=== PATIENT | female | born 1945 | race Caucasian/White ===

== ENCOUNTER → 2017-11-28 | Outpatient (CLI) | payer MEDICARE, OTHER ==
[~2017-11-28] MED LIST: ACHYD1T PO; AMLO10TA82 PO; ASP81TEC PO; BNZ20T PO; DCS100C PO; ESTR1TAB24 PO; IBP800T PO; MEDR10TA9 PO; OXYC-272 BC; SMV10T PO
--- NOTE | 2017-11-28 14:21 | Diagnostic Imaging Report ---
INDICATION: Screening. The current study was also evaluated with a Computer Aided Detection (CAD) system. Comparison made with prior examinations from 10/25/2016, 09/24/2015, and 09/22/2014. FINDINGS: There is a moderate amount of residual fibroglandular tissue bilaterally. There are a few benign-type calcifications. There is no dominant mass, spiculated lesion, or suspicious calcification identified. The skin, nipples, and axillae are unremarkable. IMPRESSION: Benign. ACR BI-RADS Category 2: Benign findings. Result letter will be mailed to the patient. Note: At least 10% of breast cancer is not imaged by mammography. Dictated by: Dictated on workstation # [id number]
== END ==
LOC: RAD 10:55
PROVIDERS: ATTEND Obstetrics & Gynecology
DX: Z12.31 Encounter for screening mammogram for malignant neoplasm of breast (principal)
CPT/HCPCS: 77067

== ENCOUNTER 2018-09-05 20:20 | Emergency (ER) | payer MEDICARE, OTHER ==
[~2018-09-05] VITALS: Ht 157.5 cm; Wt 54.4 kg
--- OUTSIDE RECORDS SUMMARY | 2018-09-05 20:25 | XMS REPORT | Continuity of Care Document ---
Author Author [facility] Organization [facility] Address Unknown Phone Unavailable Allergies Active Description Code Type Severity Reaction Onset Reported/Identified Relationship to Patient Clinical Status Yes naproxen sodium [id number] Drug Allergy Unknown N/A 09/19/2012 Medications There is no data. Problems Date Dx Coded Attending Type Code Diagnosis Diagnosed By 09/21/2012 Ot 218.2 09/21/2012 Ot 300.00 09/21/2012 Ot 620.8 09/21/2012 Ot 621.8 09/21/2012 Ot 625.8 09/21/2012 Ot 627.1 09/21/2012 Ot 788.20 09/21/2012 Ot V06.6 10/17/2014 ALEXIS WANG, MIGEL Lowe Ot V76.12 09/24/2015 Ot V76.12 09/24/2015 Ot V76.12 09/24/2015 Ot V76.12 09/24/2015 Ot 610.0 09/24/2015 Ot 285.9 09/24/2015 Ot 625.8 09/24/2015 Ot 627.1 09/24/2015 Ot V72.63 09/24/2015 Ot V74.8 09/24/2015 NATASHA ARELLANO MD Ot V76.12 09/24/2015 EILEEN WANG, NATASHA Stovall Ot 611.72 09/24/2015 MIGEL ESPINOZA MD Ot V76.12 09/28/2015 NATASHA ARELLANO MD Ot Z12.31 09/30/2015 NATASHA ARELLANO MD Ot Z12.31 10/19/2015 NATASHA ARELLANO MD Ot Z12.31 10/26/2016 NATASHA ARELLANO MD Ot Z12.31 ENCNTR SCREEN MAMMOGRAM FOR MALIGNANT NE 10/26/2016 NATASHA ARELLANO MD Ot Z12.31 ENCNTR SCREEN MAMMOGRAM FOR MALIGNANT NE 11/15/2016 NATASHA ARELLANO MD Ot Z12.31 ENCNTR SCREEN MAMMOGRAM FOR MALIGNANT NE 11/21/2017 NATASHA ARELLANO MD Ot Z12.31 ENCNTR SCREEN MAMMOGRAM FOR MALIGNANT NE 12/26/2017 NATASHA ARELLANO MD Ot Z12.31 ENCNTR SCREEN MAMMOGRAM FOR MALIGNANT NE Procedures There is no data. Results There is no data. Encounters ACCT No. Visit Date/Time Discharge Status Pt. Type Provider Facility Loc./Unit Complaint [id number] 11/28/2017 10:55:00 11/28/2017 23:59:59 CLS Outpatient NATASHA ARELLANO MD [facility] RAD ROUTINE SCREENING [id number] 10/25/2016 10:55:00 10/25/2016 23:59:59 CLS Outpatient NATASHA ARELLANO MD [facility] RAD ROUTINE [id number] 09/24/2015 09:54:00 09/24/2015 23:59:59 CLS Outpatient NATASHA ARELLANO MD [facility] RAD [id number] 09/22/2014 09:50:00 09/22/2014 23:59:59 CLS Outpatient MIGEL ESPINOZA MD [facility] RAD [id number] 06/27/2013 13:58:00 06/27/2013 23:59:59 CLS Outpatient NATASHA ARELLANO MD [facility] RAD [id number] 06/21/2013 12:03:00 06/21/2013 23:59:59 CLS Outpatient NATASHA ARELLANO MD [facility] RAD [id number] 09/05/2018 20:22:00 ACT Emergency SLIM SORTO MD [facility] ER COUGH [id number] 09/19/2012 05:36:00 Document Registration [id number] 09/13/2012 14:10:00 Document Registration [id number] 05/15/2012 12:37:00 Document Registration [id number] 05/02/2012 12:34:00 Document Registration [id number] 04/15/2011 11:47:00 Document Registration [id number] 07/15/2010 08:53:00 Document Registration
--- NOTE | 2018-09-05 20:34 | ED Cough/URI ---
General Stated Complaint: COUGH Source: patient Exam Limitations: no limitations History of Present Illness Date Seen by Provider: Sep 05, 2018 Time Seen by Provider: 20:33 Initial Comments To ER with a nonproductive cough of 2 weeks' duration and some voice hoarseness. She was seen at the onset of this at [facility] and diagnosed with bronchitis, given guaifenesin, pro-air inhaler, doxycycline. She finished all of these medications but the cough persists. No fevers or chills. She is otherwise healthy. She is a nonsmoker. She denies any wheezing. She did take a plane ride for vacation and feels that this has worsened her cough. She denies shortness of breath or fevers Timing/Duration: week (2 weeks) Severity/Quality: moderate Associated Symptoms: cough Allergies and Home Medications Allergies Coded Allergies: naproxen sodium (Verified Allergy, 09/19/12) Home Medications Acetaminophen with Codeine 1 Each Tablet, 1 EACH PO Q6H PRN for COUGH Prescribed by: LEWIS CUEVAS on 09/05/182122 Amlodipine Besylate 10 Mg Tablet, 1 EACH PO DAILY, (Reported) Aspirin 81 Mg Tabec, 81 MG PO DAILY, (Reported) Benazepril Hcl 20 Mg Tablet, 1 EACH PO DAILY, (Reported) Docusate Sodium 100 Mg Capsule, 100 MG PO BID, (Reported) Estradiol 1 Mg Tablet, 1 MG PO DAILY, (Reported) Ibuprofen 800 Mg Tab, 800 MG PO Q6HR, (Reported) Medroxyprogesterone Acetate 10 Mg Tablet, 25 MG PO DAILY, (Reported) Oxycodone Hcl/Acetaminophen 1 Tab Tablet, 1-2 TAB BC Q3 hrs PRN, (Reported) Simvastatin 10 Mg Tab, 10 MG PO DAILY, (Reported) Patient Home Medication List Home Medication List Reviewed: Yes Review of Systems Review of Systems Constitutional: see HPI; No chills, No fever EENTM: see HPI Respiratory: see HPI, cough Cardiovascular: no symptoms reported Genitourinary: no symptoms reported Musculoskeletal: no symptoms reported Skin: no symptoms reported Psychiatric/Neurological: No Symptoms Reported Past Zmftate-Ylisef-Hgxdmx Hx Patient Social History Recent Foreign Travel: No Contact w/Someone Who Travel: No Past Medical History Reproductive Disorders: No (RIGHT OVARIAN MASS,) Physical Exam Vital Signs - First Documented 09/05/18 20:36 Temp 97.6 Pulse 98 Resp 20 B/P (MAP) 144/79 (100) Pulse Ox 97 O2 Delivery Room Air Capillary Refill : Height: '" Weight: lbs. oz. kg; BMI Method: General Appearance: WD/WN, no apparent distress Eyes: Bilateral Eye Normal Inspection, Bilateral Eye PERRL, Bilateral Eye EOMI HEENT: PERRL/EOMI, normal ENT inspection, TMs normal Neck: non-tender, full range of motion Respiratory: normal breath sounds, no respiratory distress, no accessory muscle use Cardiovascular: regular rate, rhythm, no murmur Gastrointestinal: normal bowel sounds, non tender, soft Neurologic/Psychiatric: alert, normal mood/affect, oriented x 3 Skin: normal color, warm/dry, other (no unilateral leg swelling, no hypoxia or tachycardia, no shortness of breath.) Progress/Results/Core Measures Suspected Sepsis SIRS Temperature: Pulse: Respiratory Rate: Blood Pressure / Mean: Results/Orders My Orders Orders - LEWIS CUEVAS APRN Chest Pa/Lat (2 View) (09/05/18 20:32) Rx-Acetaminophen/Codeine (Rx-Tylenol #3) (09/05/18 21:30) Vital Signs/I&O 09/05/18 09/05/18 20:36 20:36 Temp 97.6 Pulse 98 Resp 20 B/P (MAP) 144/79 (100) Pulse Ox 97 O2 Delivery Room Air Capillary Refill : Departure Communication (Admissions) Discussed the diagnosis of bronchitis with the patient and the fact that this is usually viral which is why the antibiotics did not necessarily help. She could assume that the cough will stick around for another 1-2 weeks and she is concerned because she has a trip scheduled to go out of the country next month. She is worried that she'll get overseas and get worse. As such I will give her a prescription for Zithromax to fill and take with her to start if she gets worse. Impression Primary Impression: Bronchitis Disposition: 01 HOME, SELF-CARE Condition: Stable Departure-Patient Inst. Decision time for Depature: 21:21 Referrals: RADHA LOWERY DO (PCP) Primary Care Physician SHILPA SANTOS (Family) Primary Care Physician Patient Instructions: Acute Bronchitis, Adult (DC) Add. Discharge Instructions: 1. Take the cough medication as directed. Return to ER for any concerns such as shortness of breath or fevers. The cough may persist for another 1-2 weeks. Scripts Albuterol Sulfate (PROAIR HFA) 1 Puff Puff 2 PUFF IH Q4H, #1 PUFF 1 PUFF = 90 MCG Prov: LEWIS CUEVAS APRN 09/05/18 Azithromycin (Azithromycin) 250 Mg Tablet 250 MG PO UD, #6 TAB TAKE 2 TABLETS ON DAY ONE THEN TAKE 1 TABLET DAILY FOR FOUR MORE DAYS Prov: LEWIS CUEVAS APRN 09/05/18 Acetaminophen with Codeine (Tylenol with Codeine #3 Tablet) 1 Each Tablet 1 EACH PO Q6H PRN for COUGH, #10 TAB Prov: LEWIS CUEVAS APRN 09/05/18 LEWIS CUEVAS APRN Sep 05, 2018 20:34
--- NOTE | 2018-09-05 21:19 | Diagnostic Imaging Report ---
INDICATION: Cough. COMPARISON: None available. FINDINGS: Lungs are clear. No pleural effusion or pneumothorax. Prominent nipple shadows are present overlying the bilateral lung bases. 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 Heart is normal in size. No pleural effusion or pneumothorax. IMPRESSION: 1. No airspace disease to suggest pneumonia. 2. Potential double biliary arch, a congenital variant. Dictated by: Dictated on workstation # [id number]
[2018-09-05] MEDS ORDERED: ACET-789 PO (21:23)
[2018-09-05] MEDS ORDERED: RX-ACETAMINOPHEN/CODEINE TAB PPK #4 PO SCH (21:30)
[2018-09-05] MEDS ORDERED: RT-ALBUINH IH (21:34)
[2018-09-05] MEDS ORDERED: AZIT250T12 PO (21:34)
[2018-09-05] MEDS ORDERED: DEXAMETHASONE 10 MG/ML (DECADRON) 1 ML VIAL IM ONE (21:45)
[2018-09-05 21:48] VITALS: BP 126/78
== END 2018-09-05 21:48 | disposition home or self-care (01) ==
LOC: EDUNIT# 20:20 → ER 20:22
DX: J40 Bronchitis, not specified as acute or chronic (principal); Z88.8 Allergy status to other drugs, medicaments and biological substances; Z79.82 Long term (current) use of aspirin
CPT/HCPCS: 71046

== ENCOUNTER → 2018-12-07 | Outpatient (CLI) | payer MEDICARE, OTHER ==
[~2018-12-07] MED LIST changes: +ACET-789 PO; +AZIT250T12 PO; +RT-ALBUINH IH
--- NOTE | 2018-12-07 10:01 | Diagnostic Imaging Report ---
Indication: Routine screening. Comparison is made with prior mammogram from 11/28/2017 and 10/25/2016. 2-D and 3-D bilateral screening mammography was performed with CAD. Both breasts are heterogeneously dense, limiting the sensitivity of mammography. There are benign calcifications bilaterally. The overall parenchymal pattern appears to be stable. No mass or malignant-appearing microcalcifications are seen. Axillae are unremarkable. Impression: BI-RADS category 2 No mammographic features suspicious for malignancy are identified. ACR BI-RADS Category 2: Benign findings. Result letter will be mailed to the patient. Note: At least 10% of breast cancer is not imaged by mammography. Dictated by: Dictated on workstation # [id number]
== END ==
LOC: RAD 07:57
PROVIDERS: ATTEND Obstetrics & Gynecology
DX: Z12.31 Encounter for screening mammogram for malignant neoplasm of breast (principal)
CPT/HCPCS: 77067

== ENCOUNTER 2019-01-01 06:22 | Outpatient (CLI) | payer MEDICARE, OTHER ==
[~2019-01-01] VITALS: Ht 157.5 cm; Wt 54.4 kg
[2019-01-01] MEDS ORDERED: ASPI-999 PO (15:17)
[2019-01-01] MEDS ORDERED: ESTR1TAB24 PO (15:17)
[2019-01-01] MEDS ORDERED: AMLO10TA7 PO (15:17)
[2019-01-01] MEDS ORDERED: LOSA50TA63 PO (15:17)
[2019-01-01] MEDS ORDERED: COLE625T9 PO (15:17)
== END 2019-01-01 15:20 | disposition home or self-care (01) ==
LOC: PREOP 06:22
PROVIDERS: ATTEND Internal Medicine
DX: Z01.818 Encounter for other preprocedural examination (principal)

== ENCOUNTER 2019-01-04 08:15 | Day surgery (SDC) | payer MEDICARE, OTHER ==
--- NOTE | 2018-12-31 17:25 | HISTORY AND PHYSICAL ---
DATE OF SERVICE: COLONOSCOPE HISTORY AND PHYSICAL HISTORY OF PRESENT ILLNESS: The patient is a 73-year-old white female referred for screening colonoscopy by Dr. Hodgson. She last underwent screening colonoscopy little over 10 years ago in 2007 at which time no evidence for neoplasia was identified. She is deemed to be a little higher than average risk as there is a strong family history of breast cancer in multiple family members. She has no personal history of breast cancer. PAST MEDICAL HISTORY: There have been no significant changes in her medical history. She did undergo a total abdominal hysterectomy and bilateral salpingo-oophorectomy for benign reasons, Dr. Hodgson several years ago. PAST MEDICAL HISTORY: Significant for hypertension, hyperlipidemia with no known history of coronary artery disease. PAST SURGICAL HISTORY: As noted above plus the distant past history of total knee replacement. MEDICATIONS ON ADMISSION: Include baby aspirin daily, losartan 50 mg daily, amlodipine 10 mg daily, Welchol 625 mg daily and estradiol 1 mg daily. SOCIAL HISTORY: She has no past drinking or smoking history. PHYSICAL EXAMINATION: GENERAL: Reveals a white female appearing a little younger than her stated age. HEENT: Unremarkable. She is a Mallampati class 2 oropharyngeal configuration. CHEST: Clear to auscultation. CARDIOVASCULAR: Reveals a regular rate and rhythm without murmur, S3 or S4. ABDOMEN: Soft, supple without mass, organomegaly or tenderness. She has a lower midline abdominal incision. Bowel sounds are positive. No bruits are noted. EXTREMITIES: Reveal no cyanosis, clubbing or edema. ASSESSMENT AND PLAN: The patient was set up for screening colonoscopy on 01/04. Prep instructions with the Suprep kit were given and questions were answered. Electronic medical record was reviewed. I thank you for the referral of this pleasant lady. Job ID: [id number] DocumentID: [id number] Dictated Date: 12/26/2018 16:45:25 Edging Machine Setter Date: 12/26/2018 17:07:13 Dictated By: NAVI WANG MD
[~2019-01-04] VITALS: Ht 157.5 cm; Wt 54.4 kg
[~2019-01-04 08:15] MED LIST changes: +AMLO10TA7 PO; +ASPI-999 PO; +COLE625T9 PO; +LOSA50TA63 PO
[2019-01-04 08:25] VITALS: BP 97/70
[2019-01-04] MEDS ORDERED: D5 LR IV SOLUTION 1,000 ML IV ONE (08:42)
[2019-01-04] MEDS ORDERED: LIDOCAINE JELLY 2% 6 ML SYRINGE MM PRN (08:45)
[2019-01-04] MEDS ORDERED: D5 LR IV SOLUTION 1,000 ML IV PRN (08:45)
[2019-01-04] MEDS ORDERED: MIDAZOLAM 2 MG/2 ML (VERSED) VIAL IVP ONE (08:45)
[2019-01-04] MEDS ORDERED: fentaNYL INJECTION 100 MCG/2 ML AMP IVP ONE (08:45)
[2019-01-04] MEDS ORDERED: ceFAZolin INJECTION 1,000 MG ONE (09:06)
[2019-01-04] MEDS ORDERED: WATER (STERILE) FOR INJECTION 10 ML ONE (09:09)
[2019-01-04] MEDS ORDERED: ceFAZolin INJECTION 1,000 MG in NS (IVPB) 50 ML IV ONE (09:15)
[2019-01-04] MEDS ORDERED: LIDOCAINE JELLY 2% 6 ML SYRINGE ONE (09:54)
[2019-01-04] MEDS ORDERED: fentaNYL INJECTION 100 MCG/2 ML AMP ONE (09:54)
[2019-01-04] MEDS ORDERED: MIDAZOLAM 2 MG/2 ML (VERSED) VIAL ONE ×2 (09:55→10:30)
--- NOTE | 2019-01-04 10:11 | Pre-Op Note & Conscious Sedat ---
Pre-Operative Progress Note H&P Reviewed The H&P was reviewed, patient examined and no changes noted. Date H&P Reviewed: Jan 04, 2019 Time H&P Reviewed: 09:15 Conscious Sedation Pre-Proced ASA Score 2 For ASA 3 and 4: Consider anesthesia and medical clearance. Also, for patients with a history of failed moderate sedation consider anesthesia. Airway Lungs Heart ASA score ASA 1: a normal healthy patient ASA 2: a patient with a mild systemic disease (mid diabetes, controlled hypertension, obesity ASA 3: a patient with a severe systemic disease that limits activity (angina , COPD, prior Myocardial infarction) ASA 4: a patient with an incapacitating disease that is a constant threat to life (CHF, renal failure) ASA 5: a moribund patient not expected to survive 24 hrs. (ruptured aneurysm) ASA 6: a declared brain- patient whose organs are being harvested. For emergent operations, add the letter E after the classification Mallampati Classification Grade 1 Sedation Plan Analgesia, Amnesia, Plan communicated to team members, Discussed options with patient/fam, Discussed risks with patient/fam The patient is an appropriate candidate to undergo the planned procedure, sedation, and anesthesia. The patient immediately re-assessed prior to indication. NAVI WANG MD Jan 04, 2019 10:10
[2019-01-04 11:10] VITALS: BP 107/60
[2019-01-04 11:40] VITALS: BP 110/69
[2019-01-04 11:45] VITALS: BP 110/69
--- OUTSIDE RECORDS SUMMARY | 2019-01-04 12:27 | XMS REPORT | Continuity of Care Document ---
Author Author [facility] Organization [facility] Address Unknown Phone Unavailable Allergies Active Description Code Type Severity Reaction Onset Reported/Identified Relationship to Patient Clinical Status Yes naproxen sodium [id number] Drug Allergy Unknown N/A 09/19/2012 Yes naproxen sodium [id number] Drug Allergy Mild RASH 01/01/2019 Medications There is no data. Problems Date [...] 09/24/2015 Ot V72.63 09/24/2015 Ot V74.8 09/24/2015 EILEEN WANG, NATASHA Stovall Ot V76.12 09/24/2015 EILEEN WANG, NATASHA Stovall Ot 611.72 09/24/2015 ALEXIS WANG, MIGEL Lowe Ot V76.12 09/28/2015 NATASHA ARELLANO MD Ot [...] Z12.31 ENCNTR SCREEN MAMMOGRAM FOR MALIGNANT NE 09/05/2018 LEWIS CUEVAS SENIOR RESEARCH ASSOCIATE Ot J40 BRONCHITIS, NOT SPECIFIED ACUTE OR CH 09/05/2018 LEWIS CUEVAS SENIOR RESEARCH ASSOCIATE Ot R05 COUGH 09/05/2018 LEWIS CUEVAS SENIOR RESEARCH ASSOCIATE Ot Z79.82 LABORER LANDSCAPE (CURRENT) USE OF ASPIRIN 09/05/2018 LEWIS CUEVAS SENIOR RESEARCH ASSOCIATE Ot Z88.8 ALLERGY STATUS TO OTH DRUG/MEDS/BIOL SUB 09/05/2018 NATASHA ARELLANO MD Ot V76.12 OTH SCREEN MAMMO-MALIGN NEOPLASM OF ELAN 09/05/2018 NATASHA ARELLANO MD Ot 611.72 LUMP OR MASS IN BREAST 09/05/2018 ALEXIS WANG, MIGEL S Ot V76.12 OTH SCREEN MAMMO-MALIGN NEOPLASM OF ELAN 09/05/2018 NATASHA ARELLANO MD Ot Z12.31 ENCNTR SCREEN MAMMOGRAM FOR MALIGNANT NE 09/05/2018 NATASHA ARELLANO MD Ot Z12.31 ENCNTR SCREEN MAMMOGRAM FOR MALIGNANT NE 09/05/2018 NATASHA ARELLANO MD Ot Z12.31 ENCNTR SCREEN MAMMOGRAM FOR MALIGNANT NE 09/07/2018 LEWIS CUEVAS SENIOR RESEARCH ASSOCIATE Ot J40 BRONCHITIS, NOT SPECIFIED ACUTE OR CH 09/07/2018 LEWIS CUEVAS SENIOR RESEARCH ASSOCIATE Ot R05 COUGH 09/07/2018 LEWIS CUEVAS SENIOR RESEARCH ASSOCIATE Ot Z79.82 LABORER LANDSCAPE (CURRENT) USE OF ASPIRIN 09/07/2018 LEWIS CUEVAS SENIOR RESEARCH ASSOCIATE Ot Z88.8 ALLERGY STATUS TO OTH DRUG/MEDS/BIOL SUB 12/05/2018 NATASHA ARELLANO MD Ot Z12.31 ENCNTR SCREEN MAMMOGRAM FOR MALIGNANT NE 12/07/2018 NATASHA ARELLANO MD Ot Z12.31 ENCNTR SCREEN MAMMOGRAM FOR MALIGNANT NE 12/10/2018 NATASHA ARELLANO MD Ot Z12.31 ENCNTR SCREEN MAMMOGRAM FOR MALIGNANT NE 12/27/2018 NATASHA ARELLANO MD Ot Z12.31 ENCNTR SCREEN MAMMOGRAM FOR MALIGNANT NE 01/01/2019 NAVI WANG MD Ot Z01.818 ENCOUNTER FOR OTHER PREPROCEDURAL EXAMIN 01/03/2019 ALEXIS WANG, MIGEL S Ot V76.12 OTH SCREEN MAMMO-MALIGN NEOPLASM OF ELAN 01/03/2019 NATASHA ARELLANO MD Ot Z12.31 ENCNTR SCREEN MAMMOGRAM FOR MALIGNANT NE 01/03/2019 NATASHA ARELLANO MD Ot Z12.31 ENCNTR SCREEN MAMMOGRAM FOR MALIGNANT NE 01/03/2019 NATASHA ARELLANO MD Ot Z12.31 ENCNTR SCREEN MAMMOGRAM FOR MALIGNANT NE 01/03/2019 NATASHA ARELLANO MD Ot Z12.31 ENCNTR SCREEN MAMMOGRAM FOR MALIGNANT NE Procedures There is no data. Results There is no data. Encounters ACCT No. Visit Date/Time Discharge Status Pt. Type Provider Facility Loc./Unit Complaint [id number] 01/01/2019 06:22:00 01/01/2019 15:20:00 DIS Outpatient NAVI WANG MD [facility] PREOP COLONOSCOPY [id number] 12/07/2018 07:57:00 12/07/2018 23:59:59 CLS Outpatient NATASHA ARELLANO MD [facility] RAD SCREENING [id number] 09/05/2018 20:22:00 09/05/2018 21:48:00 DIS Emergency LEWIS CUEVAS APRN [facility] ER COUGH [id number] 11/28/2017 10:55:00 11/28/2017 23:59:59 CLS Outpatient NATASHA ARELLANO MD [facility] RAD ROUTINE SCREENING [id number] 10/25/2016 10:55:00 10/25/2016 23:59:59 CLS Outpatient NATASHA ARELLANO MD [facility] RAD ROUTINE [id number] 09/24/2015 09:54:00 09/24/2015 23:59:59 CLS Outpatient NATASHA ARELLANO MD [facility] RAD SCREENING [id number] 09/22/2014 09:50:00 09/22/2014 23:59:59 CLS Outpatient MIGEL ESPINOZA MD [facility] RAD MAMMO [id number] 06/27/2013 13:58:00 06/27/2013 23:59:59 CLS Outpatient NATASHA ARELLANO MD [facility] RAD ABN MAMMO [id number] 06/21/2013 12:03:00 06/21/2013 23:59:59 CLS Outpatient NATASHA ARELLANO MD [facility] RAD SCREENING [id number] 01/04/2019 08:15:00 ACT Outpatient KATHLEEN WANG, NAVI Gill [facility] ENDO SCREENING [id number] 09/19/2012 05:36:00 Document Registration [id number] 09/13/2012 14:10:00 Document Registration [id number] 05/15/2012 12:37:00 Document Registration [id number] 05/02/2012 12:34:00 Document Registration [id number] 04/15/2011 11:47:00 Document Registration [id number] 07/15/2010 08:53:00 Document Registration
--- NOTE | 2019-01-04 21:48 | OPERATIVE REPORT ---
DATE OF SERVICE: COLONOSCOPY SUMMARY I am not sure who her primary care physician is, I do not have it on my facesheet here. She is seeing Dr. Hodgson. INDICATION FOR THE PROCEDURE: Screening colonoscopy. The patient was placed in left lateral decubitus position. Prior to undergoing colonoscopy, digital rectal evaluation was performed. Anal sphincter tone was normal and the perianal reflex was intact. No abnormalities noted on additional inspection of anal canal or distal rectal vault. The colonoscope was then inserted into the rectum and under direct visualization advanced to the cecum. The cecum was identified by identification of the ileocecal valve and the cecal strap. Photographic documentation was obtained. Careful inspection was made as the colonoscope was withdrawn. The patient tolerated the procedure well. FINDINGS: There is no evidence for internal or external hemorrhoids. The rectum, sigmoid colon, descending colon, splenic flexure, transverse colon, hepatic flexure, ascending colon and cecum were unremarkable. No evidence for diverticular disease was noted. No evidence for neoplasia was identified and no vascular malformations were noted. ASSESSMENT: Normal colonoscopy of the cecum. As this is reportedly the patient's second normal screening colonoscopy is debatable as to whether or not future screening colonoscopy should be recommended. She denies any family history of colorectal cancer. I thank you for the referral of this pleasant lady. Job ID: [id number] DocumentID: [id number] Dictated Date: 01/04/2019 11:04:17 Drapery Hanger Date: 01/04/2019 21:47:41 Dictated By: NAVI WANG MD MTDD
== END 2019-01-04 11:50 | disposition home or self-care (01) ==
LOC: ENDO 08:15
PROVIDERS: ATTEND Internal Medicine
DX: Z12.11 Encounter for screening for malignant neoplasm of colon (principal); I10 Essential (primary) hypertension; E78.5 Hyperlipidemia, unspecified; Z79.82 Long term (current) use of aspirin; Z79.899 Other long term (current) drug therapy

== ENCOUNTER → 2019-12-12 | Outpatient (CLI) | payer MEDICARE, OTHER ==
--- NOTE | 2019-12-12 12:11 | Diagnostic Imaging Report ---
INDICATION: Routine screening. Comparison is made with prior mammogram from 12/07/2018 and 11/28/2017. 2-D and 3-D bilateral screening mammography was performed with CAD. Both breasts remain heterogeneously dense, limiting the sensitivity of mammography. Scattered benign-appearing calcifications are again noted bilaterally. No mass or malignant appearing microcalcifications are seen. Axillae are unremarkable. IMPRESSION: BI-RADS Category 2 No mammographic features suspicious for malignancy are identified. ACR BI-RADS Category 2: Benign findings. Result letter will be mailed to the patient. Note: At least 10% of breast cancer is not imaged by mammography. Dictated by: Dictated on workstation # [id number]
== END ==
LOC: RAD 10:57
PROVIDERS: ATTEND Obstetrics & Gynecology
DX: Z12.31 Encounter for screening mammogram for malignant neoplasm of breast (principal)
CPT/HCPCS: 77067

== ENCOUNTER → 2020-12-23 | Outpatient (CLI) | payer MEDICARE, OTHER ==
[~2020-12-23] MED LIST changes: +AMLO-251 PO; -AMLO10TA7 PO
--- NOTE | 2020-12-23 12:40 | Diagnostic Imaging Report ---
INDICATION: Routine screening. Comparison is made with prior mammogram from 12/12/2019 and 12/07/2018. 2-D and 3-D bilateral screening mammography was performed with CAD. Both breasts are heterogeneously dense, limiting the sensitivity of mammography. There are scattered benign calcifications. No mass or malignant appearing microcalcifications are seen. Axillae are unremarkable. IMPRESSION: BI-RADS Category 2 No mammographic features suspicious for malignancy are identified. ACR BI-RADS Category 2: Benign findings. Result letter will be mailed to the patient. Note: At least 10% of breast cancer is not imaged by mammography. Dictated by: Dictated on workstation # [id number]
== END ==
LOC: RAD 11:31
PROVIDERS: ATTEND Obstetrics & Gynecology
DX: Z12.31 Encounter for screening mammogram for malignant neoplasm of breast (principal)
CPT/HCPCS: 77063; 77067

== ENCOUNTER → 2022-01-31 | Outpatient (CLI) | payer MEDICARE, OTHER ==
--- NOTE | 2022-02-01 12:36 | Diagnostic Imaging Report ---
INDICATION: Routine screening. COMPARISON: 12/23/2020 and 12/12/2019. TECHNIQUE: 2D and 3D bilateral screening mammography was performed with CAD. FINDINGS: Both breasts are heterogeneously dense, limiting the sensitivity of mammography. Bilateral benign calcifications appear stable. No mass or malignant-appearing microcalcifications are seen. The axillae are unremarkable. IMPRESSION: No mammographic features suspicious for malignancy are identified. ACR BI-RADS Category 2: Benign findings. Result letter will be mailed to the patient. Note: At least 10% of breast cancer is not imaged by mammography. Dictated by: Dictated on workstation # [id number]
== END ==
LOC: RAD 14:30
PROVIDERS: ATTEND Obstetrics & Gynecology
DX: Z12.31 Encounter for screening mammogram for malignant neoplasm of breast (principal)
CPT/HCPCS: 77063; 77067

== ENCOUNTER → 2023-03-29 | Outpatient (CLI) | payer MEDICARE, OTHER ==
[~2023-03-29] MED LIST changes: +ALBU8.5H6 IH; +COLE625T30 PO; -COLE625T9 PO; -RT-ALBUINH IH
--- NOTE | 2023-03-29 19:20 | Diagnostic Imaging Report ---
INDICATION: Routine screening. COMPARISON: Prior mammograms from 01/31/2022 and 12/23/2020. EXAMINATION: 2D and 3D bilateral screening mammography was performed with CAD. The current study was also evaluated with a Computer Aided Detection (CAD) system. FINDINGS: Both breasts are heterogeneously dense, limiting the sensitivity of mammography. There are benign calcifications in both breasts. No mass or malignant-appearing microcalcifications are seen. Axillae are unremarkable. IMPRESSION: No mammographic features suspicious for malignancy are identified. ACR BI-RADS Category 2: Benign findings. Result letter will be mailed to the patient. Note: At least 10% of breast cancer is not imaged by mammography. Dictated by: Dictated on workstation # [id number]
== END ==
LOC: RAD 10:10
PROVIDERS: ATTEND Nurse Practitioner Women's Health
DX: Z12.31 Encounter for screening mammogram for malignant neoplasm of breast (principal)
CPT/HCPCS: 77063; 77067